=== PATIENT | female | born 1960 | race Hispanic/Latino ===

== ENCOUNTER 2021-05-11 17:17 | Inpatient (IN) | payer OTHER ==
[~2021-05-11] VITALS: Ht 165.1 cm; Wt 90.4 kg
[2021-05-11] MEDS ORDERED: SODIUM CHLORIDE 0.9% 1000ML 1,000 ML IV SCH (18:15)
[2021-05-11] MEDS ORDERED: ENOXAPARIN SODIUM INJ 100 MG/ML SYR SC STA (19:07)
[2021-05-11] MEDS: CEFEPIME 2 GM in SODIUM CHLORIDE 0.9% 100 ML IV SCH (19:10)
[2021-05-11] MEDS ORDERED: VANCOMYCIN HCL 1GM/NS 250 ML BAG IV ONE (19:15)
[2021-05-11] MEDS ORDERED: ENOXAPARIN SODIUM INJ 100 MG/ML SYR SC ONE (19:17)
[2021-05-11] MEDS ORDERED: SODIUM CHLORIDE 0.9% 500ML 500 ML ONE (19:18)
[2021-05-11] MEDS ORDERED: CEFEPIME HCL 1 GM VIAL ONE (19:18)
[2021-05-11] MEDS ORDERED: SODIUM CHLORIDE 0.9% 1000ML 1,000 ML ONE (19:18)
[2021-05-11] MEDS ORDERED: Vancomycin IV 1 GM VIAL ONE (19:18)
[2021-05-11] MEDS ORDERED: VANCOMYCIN 1GM/NS 250 ML 500 ML IV ONE (19:45)
[2021-05-11] MEDS ORDERED: HYDROCODONE/APAP 5MG-325MG TAB PO ONE (20:00)
[2021-05-11] MEDS ORDERED: CYCLOBENZAPRINE HCL 10 MG TAB PO ONE (20:00)
[2021-05-11] MEDS ORDERED: HYDROCODONE/APAP 5MG-325MG TAB ONE (20:14)
[2021-05-11] MEDS ORDERED: CYCLOBENZAPRINE HCL 10 MG TAB ONE (20:14)
[2021-05-11 20:30] LABS: INR 1.37; PROTHROMBIN TIME 17.1 seconds (11.9-14.5)
[2021-05-11 20:31] LABS: PARTIAL THROMBOPLASTIN TIME 34.5 seconds (23.8-35.5)
[2021-05-11] MEDS ORDERED: ONDANSETRON HCL INJ 2MG/ML 2ML 2 MG/ML VIAL IV PRN (21:00)
[2021-05-11] MEDS ORDERED: SODIUM CHLORIDE FLUSH 10 ML SYR INJ PRN (21:00)
[2021-05-11] MEDS ORDERED: MORPHINE SULFATE INJ 4 MG/ML INJ 1ML IV PRN (21:00)
[2021-05-11] MEDS ORDERED: SODIUM CHLORIDE 0.9% 50ML 50 ML ONE (22:06)
[2021-05-11] MEDS ORDERED: IOPAMIDOL 370 MG/ML 200 ML INFUS..BTL INJ ONE (22:07)
[2021-05-11] MEDS ORDERED: ACETAMINOPHEN 325 MG TAB PO PRN (22:30)
[2021-05-12] VITALS (10 sets, daily range): BP systolic 93–124; BP diastolic 61–66
[2021-05-12] MEDS: SODIUM CHLORIDE 0.9% 1000ML 1,000 ML IV SCH ×3 (00:40→22:04)
[2021-05-12] MEDS: CEFEPIME 2 GM in SODIUM CHLORIDE 0.9% 100 ML IV SCH ×3 (05:55→22:04)
[2021-05-12 07:46] LABS: BASOPHILS % 0.2 % (0.0-1.0); EOSINOPHILS # (AUTO) 0.2 (0.0-0.4); EOSINOPHILS % 0.8 % (0.0-6.0); HEMOGLOBIN 11.7 g/dL (12.0-16.0); LYMPHOCYTES % 11.2 % (18.0-39.1); MEAN CORPUSCULAR HEMOGLOBIN 28.3 pg (28-32); MEAN CORPUSCULAR HGB CONC 31.6 g/dL (31-35); MEAN CORPUSCULAR VOLUME 89.6 fL (81-99); MONOCYTES # (AUTO) 0.8 (0.2-0.8); MONOCYTES % 4.2 % (4.4-11.3); NEUTROPHILS # (AUTO) 14.7 (2.1-6.9); NEUTROPHILS % 81.9 % (38.7-80.0); PLATELET COUNT 371 x10e3/uL (140-360); RED BLOOD COUNT 4.13 x10e6/uL (3.6-5.1); RED CELL DISTRIBUTION WIDTH 13.3 % (11.7-14.4)
[2021-05-12 08:12] LABS: ALBUMIN 1.9 g/dL (3.5-5.0); ALBUMIN/GLOBULIN RATIO 0.4 (0.8-2.0); ANION GAP 12.9 mmol/L (8-16); CALCIUM 8.6 mg/dL (8.4-10.2); CREATININE, SERUM 0.64 mg/dL (0.57-1.11); POTASSIUM 3.9 mmol/L (3.5-5.1)
[2021-05-12] MEDS ORDERED: IOPAMIDOL 370 MG/ML 200 ML INFUS..BTL INJ ONE (10:58)
[2021-05-12] MEDS ORDERED: SODIUM CHLORIDE 0.9% 50ML 50 ML ONE (10:58)
[2021-05-12] MEDS ORDERED: BENZONATATE 100 MG CAP PO PRN (12:00)
[2021-05-12] MEDS ORDERED: LIDOCAINE 4% PATCH TP PRN (12:00)
[2021-05-12] MEDS ORDERED: POTASSIUM CHLORIDE 20 MEQ TAB CR PO PRN (12:00)
[2021-05-12] MEDS ORDERED: ACETAMINOPHEN 325 MG TAB PO PRN (12:00)
[2021-05-12] MEDS ORDERED: HYDRALAZINE HCL 20 MG/ML VIAL IV PRN (12:00)
[2021-05-12] MEDS ORDERED: ONDANSETRON HCL INJ 2MG/ML 2ML 2 MG/ML VIAL IV PRN (12:00)
[2021-05-12] MEDS ORDERED: DOCUSATE SODIUM 100 MG CAP PO PRN (12:00)
[2021-05-12] MEDS ORDERED: DIPHENHYDRAMINE HCL 25 MG CAP PO PRN (12:00)
[2021-05-12] MEDS ORDERED: ALBUTEROL/IPRATROPIUM 3 ML NEB NEB PRN (12:00)
[2021-05-12] MEDS ORDERED: SIMETHICONE 80 MG CHEW PO PRN (12:00)
[2021-05-12] MEDS ORDERED: DEXTROSE 50% SYRINGE 50 ML IV PRN (12:00)
[2021-05-12] MEDS: Vancomycin IV 1 GM in SODIUM CHLORIDE 0.9% 250ML 250 ML IV SCH ×2 (13:28→22:04)
[2021-05-12] MEDS ORDERED: MORPHINE SULFATE INJ 2 MG/ML SYR IV PRN (17:00)
[2021-05-12] MEDS: ENOXAPARIN SOD INJ 40 MG/0.4 ML SYR SC SCH (17:30)
[2021-05-12] MEDS ORDERED: MELATONIN 5 MG TABLET PO PRN (21:00)
[2021-05-12] MEDS: HYDROCODONE/APAP 5MG-325MG TAB PO PRN (21:00)
[2021-05-13] VITALS (8 sets, daily range): BP systolic 91–126; BP diastolic 51–80
[2021-05-13] MEDS: CEFEPIME 2 GM in SODIUM CHLORIDE 0.9% 100 ML IV SCH (05:36)
[2021-05-13 05:40] LABS: BASOPHILS # (AUTO) 0.1 (0.0-0.1); BASOPHILS % 0.3 % (0.0-1.0); EOSINOPHILS # (AUTO) 0.2 (0.0-0.4); EOSINOPHILS % 1.1 % (0.0-6.0); HEMATOCRIT 34.8 % (34.2-44.1); HEMOGLOBIN 11.2 g/dL (12.0-16.0); LYMPHOCYTES # (AUTO) 2.1 (1.0-3.2); LYMPHOCYTES % 11.8 % (18.0-39.1); MEAN CORPUSCULAR HEMOGLOBIN 28.3 pg (28-32); MEAN CORPUSCULAR HGB CONC 32.2 g/dL (31-35); MEAN CORPUSCULAR VOLUME 87.9 fL (81-99); MONOCYTES % 5.5 % (4.4-11.3); NEUTROPHILS # (AUTO) 13.8 (2.1-6.9); PLATELET COUNT 448 x10e3/uL (140-360); RED BLOOD COUNT 3.96 x10e6/uL (3.6-5.1); RED CELL DISTRIBUTION WIDTH 13.3 % (11.7-14.4)
[2021-05-13 06:13] LABS: ANION GAP 12.5 mmol/L (8-16); CALCIUM 8.2 mg/dL (8.4-10.2); CHOL/HDL RATIO 5.8 (3.0-3.6); CREATININE, SERUM 0.64 mg/dL (0.57-1.11); PHOSPHORUS 3.8 MG/DL (2.3-4.7); POTASSIUM 3.5 mmol/L (3.5-5.1)
[2021-05-13 06:35] LABS: THYROID STIMULATING HORMONE 1.699 uIU/mL (0.350-4.940)
[2021-05-13] MEDS: PANTOPRAZOLE SOD 40 MG TABEC PO SCH (09:04)
[2021-05-13] MEDS: Vancomycin IV 1 GM in SODIUM CHLORIDE 0.9% 250ML 250 ML IV SCH (09:04)
[2021-05-13] MEDS: SODIUM CHLORIDE 0.9% 1000ML 1,000 ML IV SCH ×2 (09:04→20:16)
[2021-05-13] MEDS: COLLAGENASE 5 GM TUBE TP SCH (10:10)
[2021-05-13] MEDS: CLINDAMYCIN PHOS 900MG/ 50ML 50 ML IV SCH ×2 (15:14→21:39)
[2021-05-13] MEDS: FUROSEMIDE 20 MG TAB PO SCH (15:19)
[2021-05-13] MEDS: ENOXAPARIN SOD INJ 40 MG/0.4 ML SYR SC SCH (17:28)
[2021-05-13] MEDS: HYDROCODONE/APAP 5MG-325MG TAB PO PRN (20:17)
[2021-05-14] VITALS (9 sets, daily range): BP systolic 102–118; BP diastolic 58–79
[2021-05-14] MEDS: CLINDAMYCIN PHOS 900MG/ 50ML 50 ML IV SCH ×3 (05:43→22:05)
[2021-05-14 05:53] LABS: BASOPHILS % 0.3 % (0.0-1.0); EOSINOPHILS # (AUTO) 0.2 (0.0-0.4); EOSINOPHILS % 1.3 % (0.0-6.0); HEMATOCRIT 35.3 % (34.2-44.1); HEMOGLOBIN 11.3 g/dL (12.0-16.0); LYMPHOCYTES # (AUTO) 1.6 (1.0-3.2); LYMPHOCYTES % 11.9 % (18.0-39.1); MEAN CORPUSCULAR HEMOGLOBIN 28.4 pg (28-32); MEAN CORPUSCULAR VOLUME 88.7 fL (81-99); MONOCYTES # (AUTO) 0.9 (0.2-0.8); MONOCYTES % 6.6 % (4.4-11.3); NEUTROPHILS # (AUTO) 10.5 (2.1-6.9); NEUTROPHILS % 77.2 % (38.7-80.0); PLATELET COUNT 499 x10e3/uL (140-360); RED BLOOD COUNT 3.98 x10e6/uL (3.6-5.1); RED CELL DISTRIBUTION WIDTH 13.4 % (11.7-14.4)
[2021-05-14 06:25] LABS: ANION GAP 11.4 mmol/L (8-16); CALCIUM 8.3 mg/dL (8.4-10.2); CREATININE, SERUM 0.6 mg/dL (0.57-1.11); POTASSIUM 3.4 mmol/L (3.5-5.1)
[2021-05-14] MEDS: PANTOPRAZOLE SOD 40 MG TABEC PO SCH (09:38)
[2021-05-14] MEDS: FUROSEMIDE 20 MG TAB PO SCH (09:38)
[2021-05-14] MEDS: COLLAGENASE 5 GM TUBE TP SCH (09:38)
[2021-05-14] MEDS: SODIUM CHLORIDE 0.9% 1000ML 1,000 ML IV SCH ×2 (09:41→23:40)
[2021-05-14] MEDS: KETOROLAC TROMETHAMINE 30 MG/ML VIAL IV SCH ×2 (12:48→22:05)
[2021-05-14] MEDS: ENOXAPARIN SOD INJ 40 MG/0.4 ML SYR SC SCH (17:13)
[2021-05-15] VITALS (8 sets, daily range): BP systolic 102–120; BP diastolic 58–69
[2021-05-15] MEDS: KETOROLAC TROMETHAMINE 30 MG/ML VIAL IV SCH (06:25)
[2021-05-15] MEDS: CLINDAMYCIN PHOS 900MG/ 50ML 50 ML IV SCH ×3 (06:25→22:17)
[2021-05-15] MEDS: FUROSEMIDE 20 MG TAB PO SCH (09:01)
[2021-05-15] MEDS: COLLAGENASE 5 GM TUBE TP SCH (09:01)
[2021-05-15] MEDS: PANTOPRAZOLE SOD 40 MG TABEC PO SCH (09:01)
[2021-05-15] MEDS: SODIUM CHLORIDE 0.9% 1000ML 1,000 ML IV SCH (14:00)
[2021-05-15] MEDS: ENOXAPARIN SOD INJ 40 MG/0.4 ML SYR SC SCH (17:28)
[2021-05-16] VITALS (7 sets, daily range): BP systolic 103–116; BP diastolic 57–69
[2021-05-16] MEDS: SODIUM CHLORIDE 0.9% 1000ML 1,000 ML IV SCH (03:09)
[2021-05-16] MEDS: CLINDAMYCIN PHOS 900MG/ 50ML 50 ML IV SCH ×3 (06:24→22:18)
[2021-05-16] MEDS: PANTOPRAZOLE SOD 40 MG TABEC PO SCH (08:59)
[2021-05-16] MEDS: COLLAGENASE 5 GM TUBE TP SCH (08:59)
[2021-05-16] MEDS: FUROSEMIDE 20 MG TAB PO SCH (08:59)
[2021-05-16] MEDS: KETOROLAC TROMETHAMINE 30 MG/ML VIAL IV SCH ×2 (13:20→17:15)
[2021-05-16 14:04] LABS: ANION GAP 15.5 mmol/L (8-16); CALCIUM 8.9 mg/dL (8.4-10.2); CREATININE, SERUM 0.63 mg/dL (0.57-1.11); POTASSIUM 3.5 mmol/L (3.5-5.1)
[2021-05-16] MEDS: ENOXAPARIN SOD INJ 40 MG/0.4 ML SYR SC SCH (17:15)
[2021-05-17] VITALS (7 sets, daily range): BP systolic 101–157; BP diastolic 57–72
[2021-05-17] MEDS: KETOROLAC TROMETHAMINE 30 MG/ML VIAL IV SCH ×2 (00:25→06:05)
[2021-05-17] MEDS: CLINDAMYCIN PHOS 900MG/ 50ML 50 ML IV SCH ×3 (06:05→21:09)
[2021-05-17 07:38] LABS: BASOPHILS % 0.4 % (0.0-1.0); EOSINOPHILS # (AUTO) 0.2 (0.0-0.4); EOSINOPHILS % 1.9 % (0.0-6.0); HEMATOCRIT 37.7 % (34.2-44.1); HEMOGLOBIN 11.9 g/dL (12.0-16.0); LYMPHOCYTES # (AUTO) 1.7 (1.0-3.2); LYMPHOCYTES % 19.7 % (18.0-39.1); MEAN CORPUSCULAR HEMOGLOBIN 28.2 pg (28-32); MEAN CORPUSCULAR HGB CONC 31.6 g/dL (31-35); MEAN CORPUSCULAR VOLUME 89.3 fL (81-99); MONOCYTES # (AUTO) 0.8 (0.2-0.8); MONOCYTES % 9.4 % (4.4-11.3); NEUTROPHILS # (AUTO) 5.6 (2.1-6.9); NEUTROPHILS % 66.2 % (38.7-80.0); PLATELET COUNT 576 x10e3/uL (140-360); RED BLOOD COUNT 4.22 x10e6/uL (3.6-5.1); RED CELL DISTRIBUTION WIDTH 13.4 % (11.7-14.4)
[2021-05-17 08:01] LABS: CALCIUM 8.6 mg/dL (8.4-10.2); CREATININE, SERUM 0.6 mg/dL (0.57-1.11)
[2021-05-17] MEDS: PANTOPRAZOLE SOD 40 MG TABEC PO SCH (09:54)
[2021-05-17] MEDS: COLLAGENASE 5 GM TUBE TP SCH (09:54)
[2021-05-17] MEDS: FUROSEMIDE 20 MG TAB PO SCH (09:54)
[2021-05-17] MEDS: ENOXAPARIN SOD INJ 40 MG/0.4 ML SYR SC SCH (17:15)
[2021-05-18] VITALS (7 sets, daily range): BP systolic 93–108; BP diastolic 55–75
[2021-05-18] MEDS: CLINDAMYCIN PHOS 900MG/ 50ML 50 ML IV SCH ×3 (05:45→21:22)
[2021-05-18 06:45] LABS: BASOPHILS % 0.4 % (0.0-1.0); EOSINOPHILS # (AUTO) 0.2 (0.0-0.4); HEMATOCRIT 43.1 % (34.2-44.1); HEMOGLOBIN 13.8 g/dL (12.0-16.0); LYMPHOCYTES # (AUTO) 2.9 (1.0-3.2); LYMPHOCYTES % 28.5 % (18.0-39.1); MEAN CORPUSCULAR HEMOGLOBIN 28.3 pg (28-32); MEAN CORPUSCULAR VOLUME 88.5 fL (81-99); MONOCYTES # (AUTO) 0.9 (0.2-0.8); MONOCYTES % 8.8 % (4.4-11.3); NEUTROPHILS # (AUTO) 5.9 (2.1-6.9); NEUTROPHILS % 58.6 % (38.7-80.0); PLATELET COUNT 697 x10e3/uL (140-360); RED BLOOD COUNT 4.87 x10e6/uL (3.6-5.1); RED CELL DISTRIBUTION WIDTH 13.2 % (11.7-14.4)
[2021-05-18 07:20] LABS: ANION GAP 17.1 mmol/L (8-16); CALCIUM 9.4 mg/dL (8.4-10.2); CREATININE, SERUM 0.64 mg/dL (0.57-1.11); POTASSIUM 4.1 mmol/L (3.5-5.1)
[2021-05-18] MEDS: PANTOPRAZOLE SOD 40 MG TABEC PO SCH (09:15)
[2021-05-18] MEDS: COLLAGENASE 5 GM TUBE TP SCH (09:15)
[2021-05-18] MEDS: FUROSEMIDE 20 MG TAB PO SCH (09:15)
[2021-05-18] MEDS: ENOXAPARIN SOD INJ 40 MG/0.4 ML SYR SC SCH (16:57)
[2021-05-19] VITALS: BP 109/75
[2021-05-19] MEDS: CLINDAMYCIN PHOS 900MG/ 50ML 50 ML IV SCH ×2 (04:59→13:14)
[2021-05-19 07:56] VITALS: BP 98/72
[2021-05-19 08:05] VITALS: BP 98/72
[2021-05-19] MEDS: PANTOPRAZOLE SOD 40 MG TABEC PO SCH (08:43)
[2021-05-19] MEDS: FUROSEMIDE 20 MG TAB PO SCH (08:43)
[2021-05-19] MEDS: COLLAGENASE 5 GM TUBE TP SCH (08:43)
[2021-05-19 11:43] VITALS: BP 132/67
[2021-05-19] MEDS ORDERED: ONDANSETRON HCL 4 MG ORAL DISINTEGRATING TAB PO PRN (14:45)
== END 2021-05-19 14:33 | disposition home or self-care (01) | DRG 872 ==
LOC: FSED 18:00 → ERHOLD 20:55 → MED/SURG3 23:52
PROVIDERS: ADMIT Internal Medicine; ATTEND Internal Medicine
DX: A41.9 Sepsis, unspecified organism (principal); L03.116 Cellulitis of left lower limb; I83.223 Varicose veins of left lower extremity with both ulcer of ankle and inflammation; L97.329 Non-pressure chronic ulcer of left ankle with unspecified severity; E66.01 Morbid (severe) obesity due to excess calories; Z88.0 Allergy status to penicillin; R73.9 Hyperglycemia, unspecified; Z68.33 Body mass index [BMI] 33.0-33.9, adult; R53.81 Other malaise; G89.29 Other chronic pain; B96.5 Pseudomonas (aeruginosa) (mallei) (pseudomallei) as the cause of diseases classified elsewhere; B95.1 Streptococcus, group B, as the cause of diseases classified elsewhere; E87.70 Fluid overload, unspecified; Z20.822 Contact with and (suspected) exposure to COVID-19
CPT/HCPCS: 36415; 71260; 80048; 80053; 80061; 82553; 82948; 83036; 83605; 83735; 84100; 84443; 84484; 85025; 85379; 85610; 85730; 87040; 87071; 87186; 87205; 93005; 93970; 97139; 99251; 99284; J0692; J1650; J1885; J3370; J7030; J7040; J7050; Q9967; U0002